=== PATIENT | male | born 1950 | race Caucasian/White ===

== ENCOUNTER 2018-01-21 09:28 | Emergency (ER) | payer OTHER ==
[~2018-01-21] VITALS: Ht 175.3 cm; Wt 104.3 kg
--- NOTE | ~2018-01-21 | EKG ---
[address] [place] [address] ELECTROCARDIOGRAM REPORT Name: GANGA WOODARD Room #: DEP Lilly#: [id number] Admission: 01/21/18 Attend Phys: Discharge: 01/21/18 Date of : 48 Report #: [id number] THIS REPORT FOR: //name// [facility] ED Test Date: 2018-01-21 Test Time: 10:48:30 Pat Name: GANGA WOODARD Department: Room: Gender: M [employer]: MELYSSASHAILESH : 1950 Requested By: Eliceo Turner Order Number: [id number] MD: Iain Goode Measurements Intervals [place] Rate: 92 P: [place]: QRS: 17 QRSD: 78 T: 88 QT: 419 QTc: 519 Interpretive Statements Atrial fibrillation Borderline repolarization abnormality Prolonged QT interval Compared to ECG 08/01/2010 17:03:16 Prolonged QT interval now present Electronically Signed On 01-21-2018 16:53:27 CDT by Iain Godoe [email or web address] <ELECTRONICALLY SIGNED> By: Iain Goode MD, [facility] 01/21/18 1653 [id number] Iain Goode MD, FACC /EPI
[~2018-01-21 09:28] MED LIST: ACETAMINOPHEN325 M1 PO; CARDIZEM CD240 MG PO; DIPHENHYDRAMINE50 MG PO
[2018-01-21 11:32] LABS: ABSOLUTE NEUTROPHILS 5.7 thou/uL (1.4-8.2); BASOPHILS 0.9 % (0.0-2.0); EOSINOPHILS 3.2 % (0.0-3.0); HEMATOCRIT 42.2 % (42.0-52.0); HEMOGLOBIN 14.4 gm/dL (14.0-18.0); LYMPHOCYTES 24.2 % (24.0-44.0); MCH 30.4 pg (26.0-34.0); MCHC 34.1 g/dL (28.0-37.0); MCV 89.1 fL (80.0-100.0); MONOCYTES 11.4 % (1.0-8.0); PLATELET COUNT 224 thou/uL (150-400); POLYS 60.3 % (36.0-66.0); RBC 4.73 mil/uL (4.50-6.00); RDW 13.6 % (10.5-14.5); WBC 9.4 thou/uL (4.0-11.0)
[2018-01-21 11:37] LABS: ANION GAP 7 mmol/L (7-16); BUN 19 mg/dL (7-18); CALCIUM 9.2 mg/dL (8.5-10.1); CHLORIDE 104 mmol/L (98-107); CO2 27 mmol/L (21-32); GLUCOSE 124 mg/dL (74-106); POTASSIUM 3.9 mmol/L (3.5-5.1); SODIUM 138 mmol/L (136-145)
[2018-01-21 11:45] LABS: TROPONIN-I <0.06 ng/mL (<0.06)
[2018-01-21 12:28] VITALS: BP 121/86
== END 2018-01-21 12:29 | disposition home or self-care (01) ==
LOC: ER 09:28
PROVIDERS: Physician Assistant
DX: G62.89 Other specified polyneuropathies (principal); R60.0 Localized edema